=== PATIENT | female | born 1955 | race Two or more races ===

== ENCOUNTER 2024-06-02 10:23 | Day surgery (SDC) | payer OTHER ==
[2024-06-01 10:45] LABS: Basophils # (auto) 0 10 ^3/uL (0-0.2); Eosinophils # (auto) 0.1 10 ^3/uL (0-0.8); Monocytes # (auto) 0.4 10 ^3/uL (0-1.3)
[2024-06-01 10:47] LABS: Basophils % (auto) 0.8 % (0.0-2.0); Eosinophils % (auto) 2.6 % (0.0-7.0); Hematocrit 36.4 % (36.0-46.0); Lymphocytes # (auto) 1.3 10 ^3/uL (0.4-5.4); Lymphocytes % (auto) 32.5 % (10.0-50.0); Mean Corpuscular Hemoglobin 26.8 pg (28.0-32.0); Mean Corpuscular Hgb Conc. 32.9 g/dL (32.0-36.0); Mean Corpuscular Volume 81.6 fL (80.0-100.0); Monocytes % (auto) 9.5 % (0.0-12.0); Neutrophils # (auto) 2.1 10 ^3/uL (1.6-8.6); Neutrophils % (auto) 54.6 % (37.0-80.0); Nucleated Red Blood Cells % 0.1 %; Platelet Count (auto) 253 10^3/uL (140-450); Red Blood Cells 4.46 10^6/uL (4.0-5.20); Red Cell Distribution Width 14.2 % (11.8-14.3); White Blood Cell 3.9 10^3/uL (4.4-10.8)
[2024-06-01 10:54] LABS: INR 0.99 (0.9-1.15); Partial Thromboplastin Time 27.2 SEC (24.5-34.5); Prothrombin Time 10.5 sec (9.3-11.8)
[2024-06-01 11:35] LABS: Alanine Aminotransferase 12 U/L (7-40); Albumin 4.3 g/dL (3.2-4.8); Alkaline Phosphatase 72 U/L (46-116); Anion Gap 5 (5-15); Aspartate Aminotransferase 15 U/L (13-40); BUN/Creatinine Ratio 12.4 (10.0-20.0); Blood Urea Nitrogen 12 mg/dL (9-23); Carbon Dioxide 31 mmol/L (20-31); Chloride 106 mmol/L (98-107); Glucose 96 mg/dL (74-106); Potassium 3.7 mmol/L (3.5-5.1); Sodium 142 mmol/L (136-145)
[2024-06-01 11:36] LABS: Bilirubin, Total 0.4 mg/dL (0.2-1.0); Total Protein 7.5 g/dL (5.7-8.2)
[~2024-06-02] VITALS: Ht 175.3 cm; Wt 90.7 kg
[~2024-06-02 10:23] MED LIST: AMLO1TAB23 PO; ATOR-507 PO; BUPR150T18 PO; BUSP5TAB51 PO; CHOL1TAB28 PO; SERT-160 PO
[2024-06-02] MEDS ORDERED: SODIUM CHLORIDE LOCK 10 ML ONE (11:00)
[2024-06-02] MEDS ORDERED: ceFAZolin 2 GM/D5W100ml 100 ML IV ONE (14:44)
[2024-06-02 15:20] VITALS: PULSE 68; RESP 13; O2SAT 99
[2024-06-02] MEDS: MIDAZOLAM HCL 5 MG/ML-1ML VIAL ONE (15:24)
[2024-06-02] MEDS: fentaNYL CITRATE 100 MCG/2 ML VL ONE (15:24)
[2024-06-02] MEDS: diphenhdrAMINE HCL 50 MG/1 ML VL ONE (15:24)
[2024-06-02 15:49] VITALS: PULSE 55; RESP 13; O2SAT 100
--- NOTE | 2024-06-02 15:57 | DVHOP2 ---
Operative Report DATE OF OPERATION: 06/02/24 PROCEDURE: Diagnostic Colonoscopy. PREOPERATIVE INDICATION: The patient is a 68 -year-old female undergoing colonoscopy for surveillance with personal history of colon polyps and colon cancer screening last colonoscopy over 10 years ago POSTOPERATIVE DIAGNOSES: 1. Extensive severe scattered diverticular disease most prominent in the sigmoid with sigmoid muscular hypertrophy tortuosity and fixation 2. 1+ internal hemorrhoids otherwise normal examination up to the cecum PROCEDURE PERFORMED BY: Chema Barone M.D. SCOPE: Olympus videocolonoscope. ASA CLASS: 2. PREOPERATIVE MEDICATIONS: Versed 5 mg, Fentanyl 100 mcg, Benadryl 50 mg PROCEDURE IN DETAIL: After obtaining an informed consent, the patient was placed on left lateral decubitus position. She was then sedated with the above medications. A rectal examination was performed that was normal. The colonoscope was then passed through the anus into the rectosigmoid and through the descending, transverse, and ascending colon up to the cecum with visualization of the appendiceal orifice, base of the cecum and the ileocecal valve. The colonoscope was then withdrawn. No masses or colitis was noted.No polyps were seen . Patient had extensive severe scattered diverticular disease most prominent in the sigmoid with sigmoid muscular hypertrophy and fixation making the colonoscopy examination difficult to perform. On retroflexion she had trace internal hemorrhoids. The patient tolerated the procedure well without difficulty. WITHDRAWAL TIME: 9 minutes QUALITY OF THE PREP: [place] Bowel Prep score: 9. COMPLICATIONS : None SPECIMENS: None DISPOSITION: Stable D/C to home PLAN: 1. Repeat colonoscopy in 10 years ; recommend MAC sedation for future procedures 2. Resume GI soft diet advance as tolerated 3. Increase fluid and fiber intake 4. Local anorectal hemorrhoidal care 5. Outpatient follow up with me in 4-6 weeks to review results and discuss further management CHEMA BARONE MD Jun 02, 2024 15:57
[2024-06-02 17:00] VITALS: BP 115/91; PULSE 65; RESP 18; O2SAT 99
== END 2024-06-02 17:25 | disposition home or self-care (01) ==
LOC: GI 10:23
PROVIDERS: ATTEND Internal Medicine Gastroenterology
DX: Z12.11 Encounter for screening for malignant neoplasm of colon (principal); K57.30 Diverticulosis of large intestine without perforation or abscess without bleeding; K64.0 First degree hemorrhoids; I12.9 Hypertensive chronic kidney disease with stage 1 through stage 4 chronic kidney disease, or unspecified chronic kidney disease; N18.30 Chronic kidney disease, stage 3 unspecified; F32.A Depression, unspecified; F41.9 Anxiety disorder, unspecified; Z98.890 Other specified postprocedural states; Z96.653 Presence of artificial knee joint, bilateral; Z98.84 Bariatric surgery status; Z90.710 Acquired absence of both cervix and uterus; Z86.0100 Personal history of colon polyps, unspecified; Z88.8 Allergy status to other drugs, medicaments and biological substances
CPT/HCPCS: 36415; 45378; 80053; 85025; 85610; 85730; J1200; J2250; J3010; J7030; 99152; 99153